=== PATIENT | female | born 1995 | race Two or more races ===

== ENCOUNTER 2017-10-15 02:33 | Emergency (ER) | payer SELFPAY ==
[2017-10-15] MEDS ORDERED: NS 1,000 ML IV ONE (02:44)
[2017-10-15] MEDS ORDERED: ONDANSETRON 4 MG/2 ML VIAL IVP ONE (02:44)
[2017-10-15 02:52] LABS: % IMMATURE GRANULYOCYTES 0.3 % (0.0-1.1); ABSOLUTE IMMATURE GRANULOCYTES 0.04 10^3/uL (0.00-0.10); ADD DIFF? NO; ADD MORPH? NO; ADD SCAN? NO; ATYPICAL LYMPHOCYTE FLAG 10 (0-99); FRAGMENT RBC FLAG 0 (0-99); HEMATOCRIT 45.4 % (38.0-47.0); HEMOGLOBIN 15.6 g/dL (12.6-16.3); LEFT SHIFT FLG 0 (0-99); LIPEMIA HEMOLYSIS FLAG 90 (0-99); MEAN CELL HEMOGLOBIN 29.7 pg (27.9-34.1); MEAN CELL HEMOGLOBIN CONCENTR. 34.4 g/dL (32.4-36.7); MEAN CELL VOLUME 86.3 fL (81.5-99.8); MEAN PLATELET VOLUME 8.6 fL (8.7-11.7); PLATELET CLUMPS FLAG 10 (0-99); PLATELET COUNT 406 10^3/uL (150-400); RED BLOOD CELL COUNT 5.26 10^6/uL (4.18-5.33); RED CELL DISTRIBUTION WIDTH 13.1 % (11.5-15.2)
--- NOTE | 2017-10-15 02:55 | EDPHY ---
H & P Stated Complaint: RLQ pain HPI/ROS: HPI CHIEF COMPLAINT: Abdominal pain HISTORY OF PRESENT ILLNESS: Patient is a 22-year-old female very pleasant, no significant medical history does not take any daily medications she presents emergency room with abdominal pain. Patient reports to me she developed abdominal pain around 10:00 p.m. tonight or 5 hr ago. Is on the right side. Right lower quadrant and right upper quadrant. But mainly in the right lower quadrant. She has associated nausea with no vomiting. Denies fever. Denies chest pain or shortness of breath. No pleuritic pain. She states that she ate [place] food around 830 this evening around 10:00 p.m. it started. No diarrhea. No vomiting. Pain is 4/10. Achy. Dull. Denies being . Denies urinary symptoms. Past Medical History: No medical history Past Surgical History: No surgical history Social History: Denies daily use of drugs alcohol tobacco products. Family History: Noncontributory. ROS REVIEW OF SYSTEMS: A comprehensive 10 point review of systems is otherwise negative aside from elements mentioned in the history of present illness. Exam Constitutional appears well nontoxic triage nursing summary reviewed, vital signs reviewed, awake/alert. Eyes normal conjunctivae and sclera, EOMI, PERRLA. HENT normal inspection, atraumatic, moist mucus membranes, no epistaxis, neck supple/ no meningismus, no raccoon eyes. Respiratory clear to auscultation bilaterally, normal breath sounds, no respiratory distress, no wheezing. Cardiovascular rate normal, regular rhythm, no murmur, no edema, distal pulses normal. Gastrointestinal mild tender palpation in the right upper quadrant and right lower quadrant however more so in the right lower quadrant,, no rebound, no guarding, normal bowel sounds, no distension, no pulsatile mass. Genitourinary no CVA tenderness. Musculoskeletal no midline vertebral tenderness, full range of motion, no calf swelling, no tenderness of extremities, no meningismus, good pulses, neurovascularly intact. Skin pink, warm, & dry, no rash, skin atraumatic. Neurologic awake, alert and oriented x 3, AAOx3, moves all 4 extremities equally, motor intact, sensory intact, CN II-XII intact, normal cerebellar, normal vision, normal speech. Psychiatric normal mood/affect. Heme/Lymph/Immune no lymphadenopathy. Differential diagnosis includes but is not limited to and in no particular order : Bowel obstruction, appendicitis, gallbladder disease, diverticulitis, colitis , enteritis, perforated viscus, gastritis, GERD, esophagitis, urinary tract infection, pyelonephritis, kidney stones Medical Decision Making: Plan for this patient IV established with IV fluid bolus, Zofran for nausea, check abdominal blood work including test, urinalysis, will proceed with CT scan abdomen pelvis with IV contrast rule out acute appendicitis. Re-evaluation: 06: I did re-evaluate this patient at this time patient is resting comfortably abdomen is soft nontender. She is not vomiting she does feel better. Urinalysis has been reviewed shows UTI. I do not think this is the cause of her abdominal pain. Her CT scan has been reviewed and shows no acute appendicitis. There is some mildly dilated small bowel loops with some fluid filled at I question enteritis. Otherwise there is no acute inflammatory process visualized. Plan for this patient allowed to go home. I did discuss return precautions. She understands return emergency room if she develops worsening abdominal pain fever vomiting. Take Keflex as prescribed. Source: Patient - Personal History LMP (Females 10-55): 1-7 Days Ago Current Tetanus/Diphtheria Vaccine: Yes Current Tetanus Diphtheria and Acellular Pertussis (TDAP): Yes - Medical/Surgical History Hx Asthma: No Hx Chronic Respiratory Disease: No Hx Diabetes: No Hx Cardiac Disease: No Hx Renal Disease: No Hx Cirrhosis: No Hx Alcoholism: No Hx HIV/AIDS: No Hx Splenectomy or Spleen Trauma: No Other PMH: none reported - Social History Smoking Status: Never smoked Constitutional: Initial Vital Signs Temperature (C) 36.6 C 10/15/17 02:36 Heart Rate 97 10/15/17 02:36 Respiratory Rate 16 10/15/17 02:36 Blood Pressure 128/80 H 10/15/17 02:36 O2 Sat (%) 97 10/15/17 02:36 O2 Delivery Mode Room Air Allergies/Adverse Reactions: No Known Allergies Allergy (Verified 07/30/16 10:34) Home Medications: Medication Instructions Recorded No Medications [NO HOME 1 ea MISC 07/16/11 MEDICATIONS] AZITHROMYCIN [Z-PACK] 250 mg PO DAILY #4 packet 07/30/16 Cephalexin [Keflex] 500 mg PO Q6H #28 cap 10/15/17 Medical Decision Making - Data Points Laboratory Results: Laboratory Results 10/15/17 02:42 10/15/17 02:42 10/15/17 10/15/17 10/15/17 04:40 02:42 02:42 WBC 14.49 10^3/uL H 10^3/uL (3.80-9.50) RBC 5.26 10^6/uL 10^6/uL (4.18-5.33) Hgb 15.6 g/dL g/dL (12.6-16.3) Hct 45.4 % % (38.0-47.0) MCV 86.3 fL fL (81.5-99.8) MCH 29.7 pg pg (27.9-34.1) MCHC 34.4 g/dL g/dL (32.4-36.7) RDW 13.1 % % (11.5-15.2) Plt Count 406 10^3/uL H 10^3/uL (150-400) MPV 8.6 fL L fL (8.7-11.7) Neut % (Auto) 76.8 % H % (39.3-74.2) Lymph % (Auto) 14.3 % L % (15.0-45.0) [place] % (Auto) 6.3 % % (4.5-13.0) Eos % (Auto) 2.1 % % (0.6-7.6) Baso % (Auto) 0.2 % L % (0.3-1.7) Nucleat RBC Rel Count 0.0 % % (0.0-0.2) Absolute Neuts (auto) 11.13 10^3/uL H 10^3/uL (1.70-6.50) Absolute Lymphs (auto) 2.07 10^3/uL 10^3/uL (1.00-3.00) Absolute Monos (auto) 0.91 10^3/uL H 10^3/uL (0.30-0.80) Absolute Eos (auto) 0.31 10^3/uL 10^3/uL (0.03-0.40) Absolute Basos (auto) 0.03 10^3/uL 10^3/uL (0.02-0.10) Absolute Nucleated RBC 0.00 10^3/uL 10^3/uL (0-0.01) Immature Gran % 0.3 % % (0.0-1.1) Immature Gran # 0.04 10^3/uL 10^3/uL (0.00-0.10) Sodium 148 mEq/L H mEq/L (134-144) Potassium 4.2 mEq/L mEq/L (3.5-5.2) Chloride 109 mEq/L mEq/L (97-110) Carbon Dioxide 23 mEq/l mEq/l (22-31) Anion Gap 16 mEq/L mEq/L (8-16) BUN 10 mg/dL mg/dL (7-23) Creatinine 0.7 mg/dL mg/dL (0.6-1.0) Estimated GFR > 60 Glucose 97 mg/dL mg/dL (70-100) Calcium 9.6 mg/dL mg/dL (8.5-10.4) Total Bilirubin 1.0 mg/dL mg/dL (0.1-1.4) Conjugated Bilirubin 0.2 mg/dL mg/dL (0.0-0.5) Unconjugated Bilirubin 0.8 mg/dL mg/dL (0.0-1.1) AST 31 IU/L IU/L (14-46) ALT 28 IU/L IU/L (9-52) Alkaline Phosphatase 79 IU/L IU/L (38-126) Total Protein 7.4 g/dL g/dL (6.3-8.2) Albumin 4.1 g/dL g/dL (3.5-5.0) Lipase 69 IU/L IU/L (23-300) Beta HCG, Qual Urine Color YELLOW Urine Appearance HAZY Urine pH 8.0 H (5.0-7.5) Ur Specific [place] > 1.035 H (1.002-1.030) Urine Protein NEGATIVE (NEGATIVE) Urine Ketones NEGATIVE (NEGATIVE) Urine Blood 3+ H (NEGATIVE) Urine Nitrate NEGATIVE (NEGATIVE) Urine Bilirubin NEGATIVE (NEGATIVE) Urine Urobilinogen NEGATIVE EU EU (0.2-1.0) Ur Leukocyte Esterase TRACE H (NEGATIVE) Urine RBC 5-10 /hpf H /hpf (0-3) Urine WBC 3-5 /hpf H /hpf (0-3) Ur Epithelial Cells TRACE /lpf /lpf (NONE-1+) Urine Bacteria TRACE /hpf H /hpf (NONE SEEN) Urine Glucose NEGATIVE (NEGATIVE) 10/15/17 02:42 WBC RBC Hgb Hct MCV MCH MCHC RDW Plt Count MPV Neut % (Auto) Lymph % (Auto) [place] % (Auto) Eos % (Auto) Baso % (Auto) Nucleat RBC Rel Count Absolute Neuts (auto) Absolute Lymphs (auto) Absolute Monos (auto) Absolute Eos (auto) Absolute Basos (auto) Absolute Nucleated RBC Immature Gran % Immature Gran # Sodium Potassium Chloride Carbon Dioxide Anion Gap BUN Creatinine Estimated GFR Glucose Calcium Total Bilirubin Conjugated Bilirubin Unconjugated Bilirubin AST ALT Alkaline Phosphatase Total Protein Albumin Lipase Beta HCG, Qual NEGATIVE Urine Color Urine Appearance Urine pH Ur Specific [place] Urine Protein Urine Ketones Urine Blood Urine Nitrate Urine Bilirubin Urine Urobilinogen Ur Leukocyte Esterase Urine RBC Urine WBC Ur Epithelial Cells Urine Bacteria Urine Glucose Medications Given: Discontinued Medications Sodium Chloride (Ns) 1,000 mls @ 0 mls/hr IV ONCE ONE; Wide Open PRN Reason: Protocol Stop: 10/15/17 02:45 Last Admin: 10/15/17 03:01 Dose: 1,000 mls Ondansetron HCl (Zofran) 4 mg IVP EDNOW ONE Stop: 10/15/17 02:45 Last Admin: 10/15/17 03:01 Dose: 4 mg Departure - Departure Disposition: Home, Routine, Self-Care Clinical Impression: Abdominal pain Qualifiers: Abdominal location: generalized Qualified Code(s): R10.84 - Generalized abdominal pain UTI (urinary tract infection) Qualifiers: Urinary tract infection type: acute cystitis Hematuria presence: with hematuria Qualified Code(s): N30.01 - Acute cystitis with hematuria Condition: Good Instructions: Abdominal Pain (ED), Urinary Tract Infection in Women (ED) Additional Instructions: 1. Return emergency room if develops worsening abdominal pain fever vomiting. 2. [place] diet over the next 48 hr. 3. Antibiotics as prescribed. Referrals: [facility] [Other] - As per Instructions Prescriptions: Cephalexin [Keflex] 500 mg PO Q6H #28 cap
[2017-10-15] MEDS ORDERED: IOPAMIDOL (ISOVUE-300) 100 ML BTL ONE (03:02)
[2017-10-15 03:20] LABS: ALANINE AMINOTRANSFERASE 28 IU/L (9-52); ALBUMIN 4.1 g/dL (3.5-5.0); ALKALINE PHOSPHATASE 79 IU/L (38-126); ANION GAP 16 mEq/L (8-16); ASPARTATE AMINOTRANSFERASE 31 IU/L (14-46); BILIRUBIN-CONJUGATED 0.2 mg/dL (0.0-0.5); BILIRUBIN-UNCONJUGATED 0.8 mg/dL (0.0-1.1); CALCIUM 9.6 mg/dL (8.5-10.4); CARBON DIOXIDE 23 mEq/l (22-31); CHLORIDE 109 mEq/L (97-110); CREATININE 0.7 mg/dL (0.6-1.0); GLOMERULAR FILTRATION RATE > 60; GLUCOSE 97 mg/dL (70-100); POTASSIUM 4.2 mEq/L (3.5-5.2); SODIUM 148 mEq/L (134-144); TOTAL PROTEIN 7.4 g/dL (6.3-8.2)
[2017-10-15 04:57] LABS: COLOR YELLOW; LEUKOCYTE ESTERASE,URINE TRACE (NEGATIVE); NITRITE,URINE NEGATIVE (NEGATIVE)
[2017-10-15 05:00] LABS: BACTERIA TRACE /hpf (NONE SEEN)
[2017-10-15] MEDS ORDERED: CEPHALEXIN 500 MG CAP PO ONE (05:17)
[2017-10-15] MEDS ORDERED: CEPHALEXIN 500MG PREPACK#4 BTL TAKEHOME ONE (05:17)
[2017-10-15] MEDS ORDERED: HYDROmorphONE/DILAUDID 1 MG/ML INJ IVP ONE (06:09)
[2017-10-15 06:31] VITALS: BP 121/74; PULSE 74; RESP 16; TEMP 97.9; O2SAT 96
== END 2017-10-15 06:31 | disposition home or self-care (01) ==
DX: N30.01 Acute cystitis with hematuria (principal); B96.89 Other specified bacterial agents as the cause of diseases classified elsewhere; E86.9 Volume depletion, unspecified
CPT/HCPCS: 96374; J1170; J2405; Q9967

== ENCOUNTER 2018-03-04 01:28 | Emergency (ER) | payer MEDICAID ==
--- NOTE | 2018-03-04 01:56 | EDPHY ---
H & P Stated Complaint: right ankle/foot injury Time Seen by Provider: 03/04/18 01:53 HPI/ROS: HPI: The patient presents with right ankle pain which has been present for the last 1 hr. The patient was bowling and jumped straight upwards and excitement after landing a strike, she inverted her right ankle and had pain immediately following. She describes an achy constant pain, worse when she applies pressure to the lateral aspect of her right ankle. She denies any numbness or tingling of her foot. She has no prior history that she is aware of err of ankle injury on this side. REVIEW OF SYSTEMS Constitutional: No fever, no chills. Eyes: No discharge. ENT: No sore throat. Cardiovascular: No chest pain, no palpitations. Respiratory: No cough, no shortness of breath. Gastrointestinal: No abdominal pain, no vomiting. Genitourinary: No hematuria. Musculoskeletal: No back pain. Skin: No rashes. Neurological: No headache. PMHx: Healthy TRAUMA PHYSICAL General Appearance: Alert, no distress Head: Atraumatic Respiratory: Breathing comfortably Cardiovascular: Regular rate and rhythm Skin: No lacerations, No abrasion Extremities: Right ankle with edema and tenderness laterally with limited range of motion of the ankle secondary to pain, 2+ DP pulses, full range motion of toes, sensation is intact to light touch Neurological: A&Ox3, GCS=15 Source: Patient Exam Limitations: No limitations - Personal History LMP (Females 10-55): 8-14 Days Ago Current Tetanus Diphtheria and Acellular Pertussis (TDAP): Unsure - Medical/Surgical History Hx Asthma: No Hx Chronic Respiratory Disease: No Hx Diabetes: No Hx Cardiac Disease: No Hx Renal Disease: No Hx Cirrhosis: No Hx Alcoholism: No Hx HIV/AIDS: No Hx Splenectomy or Spleen Trauma: No Other PMH: none reported - Social History Smoking Status: Never smoked Constitutional: Initial Vital Signs Temperature (C) 36.4 C 03/04/18 01:32 Heart Rate 78 03/04/18 01:32 Respiratory Rate 20 03/04/18 01:32 Blood Pressure 104/83 H 03/04/18 01:32 O2 Sat (%) 97 03/04/18 01:32 O2 Delivery Mode Room Air Allergies/Adverse Reactions: No Known Allergies Allergy (Verified 03/04/18 01:32) Home Medications: Medication Instructions Recorded No Medications [NO HOME 1 ea [facility] [place]S] AZITHROMYCIN [Z-PACK] 250 mg PO DAILY #4 packet 07/30/16 Cephalexin [Keflex] 500 mg PO Q6H #28 cap 10/15/17 Medical Decision Making - Diagnostics Imaging Results: X-ray right ankle three view shows no fracture, no dislocation, interpreted by me, radiology interpretation is pending. Imaging: I viewed and interpreted images myself Differential Diagnosis: 22-year-old healthy female presents with right ankle pain after jumping and inverting her ankle. She has edema laterally limited range of motion because of pain. Differential diagnosis includes ankle sprain, ankle fracture, less likely ankle dislocation. Patient declines any pain medication. X-rays revealed no fracture, I feel she most likely is suffering from an ankle sprain. We have placed a stirrup ankle splint in issued crutches. I have given her information for orthopedic follow-up. She will be discharged home. - Data Points Medications Given: Discontinued Medications Hydrocodone Bitart/Acetaminophen ([place] 5/325) 1 tab PO EDNOW ONE Stop: 03/04/18 02:50 Last Admin: 03/04/18 02:51 Dose: 1 tab Departure - Departure Disposition: Home, Routine, Self-Care Clinical Impression: Ankle sprain Qualifiers: Encounter type: initial encounter Involved ligament of ankle: unspecified ligament Laterality: right Qualified Code(s): S93.401A - Sprain of unspecified ligament of right ankle, initial encounter Condition: Good Instructions: Ankle Sprain (ED), R.I.C.E. Treatment (ED) Additional Instructions: I recommend you take ibuprofen 400 mg with acetaminophen 650 mg every 6 hr as needed for pain. Please ice your ankle frequently and keep it elevated above your heart while sleeping at night. You should use crutches until your able to bear weight. I have given you follow-up information for the orthopedist. You should make a follow-up appointment unless your better in 1 week. Referrals: Natalia Mcwilliams DO [Primary Care Provider] - As per Instructions Pam Henriquez MD [Medical Doctor] - As per Instructions Stand Alone Forms: Work Limited Duty, Work Excuse
[2018-03-04 02:42] VITALS: BP 107/66
[2018-03-04] MEDS ORDERED: HYDROCODONE/APAP 5/325 TAB PO ONE (02:49)
== END 2018-03-04 03:06 | disposition home or self-care (01) ==
DX: S93.401A Sprain of unspecified ligament of right ankle, initial encounter (principal); X50.9XXA Other and unspecified overexertion or strenuous movements or postures, initial encounter; Y99.8 Other external cause status; Y93.39 Activity, other involving climbing, rappelling and jumping off
CPT/HCPCS: L4350